=== PATIENT | female | born 1975 | race Two or more races ===

== ENCOUNTER 2018-06-01 16:44 | Emergency (ER) | payer OTHER ==
[~2018-06-01] VITALS: Ht 154.9 cm; Wt 81.6 kg
[2018-06-01 17:41] VITALS: BP 146/91
[2018-06-01] MEDS ORDERED: IBUPROFEN600 MG ORAL (17:55)
--- NOTE | 2018-06-01 17:55 | Emergency Room Report ---
History of Present Illness General Chief Complaint: General Complaint Source: Patient Present Illness HPI 43-year-old female presents to the emergency department complaining of localized he had a 2/10 in severity pain and tenderness to the lateral aspect of the right breast times one day. Patient reports she was at work walking up some stairs when she turned rather quickly and hit the corner of the stair railing on her breast. Patient reports moderate tenderness at this time. Patient denies bruising, open wounds or bleeding. Patient denies taking blood thinning medications. Allergies: Coded Allergies: No Known Allergies (Unverified , 06/01/18) Patient History Past Medical History: see triage record Past Surgical History: none Pertinent Family History: none Last Menstrual Period: 05/05/2018 Now: No Reviewed Nursing Documentation: PMH: Agreed; PSxH: Agreed Nursing Documentation-PMH Past Medical History: No History, Except For Review of Systems All Other Systems: negative except mentioned in HPI Physical Exam Vital Signs Date Time Temp Pulse Resp B/P (MAP) Pulse Ox O2 Delivery O2 Flow Rate FiO2 06/01/18 17:23 98.1 61 14 146/91 99 Room Air 98.1 Sp02 EP Interpretation: reviewed, normal General Appearance: no apparent distress, alert, GCS 15, non-toxic Head: normocephalic, atraumatic Eyes: bilateral eye normal inspection, bilateral eye PERRL ENT: hearing grossly normal, normal voice Neck: full range of motion Respiratory: chest non-tender, lungs clear, normal breath sounds, speaking full sentences, other - TTP to the ST of the lateral aspect of the right breast. mild erythema, no bruising noted, no open wounds. Cardiovascular #1: regular rate, rhythm Musculoskeletal: back normal, gait/station normal, normal range of motion, other - TTP to the ST of the lateral aspect of the right breast. mild erythema, no bruising noted, no open wounds. Neurologic: alert, oriented x3, responsive, motor strength/tone normal, sensory intact, normal gait, speech normal, grossly normal Psychiatric: judgement/insight normal Skin: normal color, no rash, warm/dry, well hydrated, other - mild erythema to the lateral aspect of the right breast, no bruising noted, no open wounds. Lymphatic: no adenopathy Medical Decision Making PA Attestation Dr. Mcfadden is my supervising Physician whom patient management has been discussed with. Diagnostic Impression: Primary Impression: Contusion of breast, right Qualified Codes: S20.01XA - Contusion of right breast, initial encounter ER Course hit right breast on stair railing corner, tenderness/ soreness 6/10 in severity. Ddx considered but are not limited to Contusion, hematoma, puncture wound just to name a few. Vital signs: are WNL, pt. is afebrile H&PE are most consistent with right breast contusion ORDERS: none required at this time, the diagnosis is clinical ED INTERVENTIONS: None required at this time. DISCHARGE: At this time pt. is stable for d/c to home. Will provide printed patient care instructions, and any necessary prescriptions. Care plan and follow up instructions have been discussed with the patient prior to discharge. Last Vital Signs Date Time Temp Pulse Resp B/P (MAP) Pulse Ox O2 Delivery O2 Flow Rate FiO2 06/01/18 17:41 98.1 14 146/91 99 Room Air 98.1 06/01/18 17:23 61 Disposition: HOME, SELF-CARE Condition: Stable Scripts Ibuprofen* (MOTRIN*) 600 Mg Tablet 600 MG ORAL THREE TIMES A DAY, #30 TAB 0 Refills Prov: Smita Kam 06/01/18 Referrals: NOT CHOSEN IPA/MD,REFERRING (PCP) Patient Instructions: Contusion, [id number] Additional Instructions: Take medications as directed. Follow up with a Primary Care Provider in 3-5 days, even if your symptoms have resolved. --Please review list of primary care clinics, if you do not already have a primary care provider Return sooner to ED if new symptoms occur, or current symptoms become worse. - Please note that this Emergency Department Report was dictated using [employer] technology software, occasionally this can lead to erroneous entry secondary to interpretation by the dictation equipment. Smita Kam Jun 01, 2018 17:55
[2018-06-01 18:05] VITALS: BP 101/69
== END 2018-06-01 18:09 | disposition home or self-care (01) ==
LOC: EMR 17:40
DX: S20.01XA Contusion of right breast, initial encounter (principal); W22.09XA Striking against other stationary object, initial encounter; Y93.89 Activity, other specified; Y92.69 Other specified industrial and construction area as the place of occurrence of the external cause; Y99.0 Civilian activity done for income or pay
CPT/HCPCS: 99282